=== PATIENT | female | born 1930 | race Caucasian/White ===

== ENCOUNTER 2016-12-18 01:46 | Emergency (ER) | payer OTHER, BC ==
--- NOTE | 2016-12-18 06:22 | ED ORDER SUMMARY ---
..... Patient: FRANCESCO MACE I OrderSheet [facility] VisitID: [id number] [place] [address] 86y, F Registration Date/Time: 12/18/2016 ORDER SHEET Weight: 60.7 kg (stated) Allergies: No Known Drug Allergy GENERAL ORDERS: MEDICATION ORDERS: Epinephrine Subcut 0.3 mg (NOW) (02:12/18/2016 Francisca RICHARDS) (2:58 SSambou R.N.) IV FLUIDS: Solu-MEDROL IV 125 mg (NOW) (02:12/18/2016 Francisca RICHARDS) (2:50 SSambou R.N.) Benadryl IV 25 mg (NOW) (02:12/18/2016 Francisca RICHARDS) (2:50 SSambou R.N.) Famotidine IV 40 mg/50mL (NOW) (02:24 12/18/2016 Francisca RICHARDS) (2:51 SSambou R.N.) Solu-MEDROL IV 30 mg (NOW) (06:19 12/18/2016 Francisca RICHARDS) (6:37 SSambou R.N.) ORDER SHEET NOTES: [Electronically signed by Sheriff Connor Draper (06:44 12/18/2016)] [Electronically signed by Navdeep Pavon MD (00:19 12/22/2016)] [Electronically locked/signed by Sheriff Connor Draper (06:44 12/18/2016)]
--- NOTE | 2016-12-18 06:22 | ED ORDER SUMMARY ---
..... Patient: FRANCESCO MACE I OrderSheet [facility] VisitID: [id number] [place] [address] 86y, F Registration Date/Time: 12/18/2016 ORDER SHEET Weight: 60.7 kg (stated) Allergies: No Known Drug Allergy GENERAL ORDERS: MEDICATION ORDERS: Epinephrine Subcut 0.3 mg (NOW) (02:12/18/2016 Francisca RICHARDS) (2:58 SSambou R.N.) IV FLUIDS: Solu-MEDROL IV 125 mg (NOW) (02:12/18/2016 Francisca RICHARDS) (2:50 SSambou R.N.) Benadryl IV 25 mg (NOW) (02:12/18/2016 Francisca RICHARDS) (2:50 SSambou R.N.) Famotidine IV 40 mg/50mL (NOW) (02:24 12/18/2016 Francisca RICHARDS) (2:51 SSambou R.N.) Solu-MEDROL IV 30 mg (NOW) (06:19 12/18/2016 Francisca RICHARDS) (6:37 SSambou R.N.) ORDER SHEET NOTES: [Electronically signed by Sheriff Connor Draper (06:44 12/18/2016)] [Electronically signed by Navdeep Pavon MD (00:19 12/22/2016)] [Electronically locked/signed by Sheriff Connor Draper (06:44 12/18/2016)]
--- NOTE | 2016-12-18 06:22 | ED CLINICAL REPORT ---
Clinical Report - Physicians/Mid Levels [facility] [address] [place] [address] 12/18/2016 1:47 Patient: FRANCESCO MACE I Time Seen: 02:Dec 18 2016. Arrived- By private vehicle. Historian- patient. HISTORY OF PRESENT ILLNESS Chief Complaint: ALLERGIC REACTION, SKIN RASH and ITCHING. FACIAL SWELLING. This started today and is still present. The patient has had a moderate, itchy skin rash with generalized distribution. She has had swelling involving the tongue. No cause has been identified. The patient was not assessed by EMS prior to arrival. Similar symptoms previously: Recent medical care: Not recently seen/assessed. REVIEW OF SYSTEMS No eye problems, sore throat, cough, sputum production or fever. No chills, joint pain, enlarged lymph nodes, weakness or chest pain. No palpitations, abdominal pain, vomiting, black stools or urinary frequency. No diarrhea or bloody stools. All systems otherwise negative, except as recorded above. PAST HISTORY Abdominal Pain. UTI - Urinary Tract Infection. Hernia. Angioedema. Heart Disease. Hypertension. Tremor. LNMP - Last Normal Menstrual Period. Cancer. IBS. Anxiety Reaction. Allergic Reaction. Acute Pain. Medications: Melatonin ER Oral (Tablet Extended Release 3 mg) 1 tablet. Chlorthalidone Oral (Tablet 25 mg) 1 tablet, daily. FLUoxetine HCl Oral (Capsule 20 mg) 1 capsule, daily. Metoprolol Succinate ER Oral (Tablet Extended Release 24 Hour 50 mg) 1-2 tablets, daily. Spironolactone Oral (Tablet 25 mg) 1/2 tablet, daily. Allergies: No Known Drug Allergy. SOCIAL HISTORY Never smoker. No alcohol use or drug use. ADDITIONAL NOTES The nursing notes have been reviewed. PHYSICAL EXAM Vital Signs: 12/18/2016 02:02 BP: 136/66. HR: 65. RR: 18. O2 saturation: 100%. Temp: 97.7 F. Pain level now: 0/10. Appearance: Alert. Anxious. Patient in mild distress. Head and Neck: Normal external inspection. Head: Moderate facial angioedema involving the tongue. Eyes: Pupils equal, round and reactive to light. ENT: Ears normal. Nose normal. Pharynx normal. Voice normal. Neck: Neck supple. CVS: Normal heart rate and rhythm. Heart sounds normal. Respiratory: No respiratory distress. Breath sounds normal. No stridor or wheezes. Abdomen: Nontender. Skin: Skin warm and dry. Extremities: Normal external inspection. Extremities nontender. Skin: Urticaria. Skin rash. The rash is urticarial. The rash is generalized. Neuro: Oriented X 3. No motor deficit. No sensory deficit. PROGRESS AND PROCEDURES Course of Care: 06:17 12/18/16. Much better. Pt with only minimal swelling of the tongue at this time. Pt has complete resolution of rash and itching. Pt wants to go home. She will return immediately for any worsening. She also has an Epi pen. Heplock Solumedrol 125 mg IV Famotadine 40 mg IV Benadryl 25mg IV Patient is stable. Symptoms much better. Patient/family counseled. Disposition: Discharged. Condition: stable and improved. CLINICAL IMPRESSION Allergic reaction with skin rash, hives and angioedema of unknown cause. Angioedema secondary to unknown cause with facial swelling. INSTRUCTIONS Warnings: Further evaluation is necessary. GENERAL WARNINGS: Return or contact your physician immediately if your condition worsens or changes unexpectedly, if not improving as expected, or if other problems arise. Prescription Medications: Prednisone 20 mg: take 3 orally every day for 5 days. Dispense fifteen (15). No refills. Famotidine 40 mg: take 1 orally at bedtime. Dispense five (5). No refills. OTC Medications: Benadryl Allergy 25 mg (available over the counter): take 1 orally every 6 hours as needed for itching or allergies. Dispense twenty (20). No refill. Substitution is permissible. Follow-up: Return to the emergency department if worse. Follow up with your doctor in two days. Call for an appointment. Understanding of the discharge instructions verbalized by patient. (Electronically signed by Navdeep Pavon MD 12/22/2016 0:19)
--- NOTE | 2016-12-18 06:22 | ED NURSING NOTES ---
Clinical Report - Nurses [facility] [address] [place] [address] 12/18/2016 1:47 Patient: FRANCESCO MACE I TRIAGE Triage time 02:01. Acuity: LEVEL 3. Chief Complaint: (Tongue swelling). --02:06 Sheriff Draper R.N. 02:02 12/18/16. BP: 136/66. HR: 65. RR: 18. O2 saturation: 100%. Temp: 97.7 F. Pain level now: 0/10. --02:06 Sheriff Draper R.N. 02:02 12/18/16. BP: 136/66. HR: 65. RR: 18. O2 saturation: 100%. Temp: 97.7 F. Pain level now: 0/10. --02:06 Sheriff Draper R.N. Weight: 60.7 kg stated. Height/Length: 62 inches Per Patient. BMI: 24.5. --02:06 Sheriff Draper R.N. Medications Chlorthalidone Oral (Tablet 25 mg) 1 tablet, daily. FLUoxetine HCl Oral (Capsule 20 mg) 1 capsule, daily. Metoprolol Succinate ER Oral (Tablet Extended Release 24 Hour 50 mg) 1-2 tablets, daily. Spironolactone Oral (Tablet 25 mg) 1/2 tablet, daily. --02:04 Sheriff Draper R.N. Melatonin ER Oral (Tablet Extended Release 3 mg) 1 tablet. --02:09 Sheriff Draper R.N. Allergies No Known Drug Allergy. --02:04 Sheriff Draper R.N. History Arrived by private vehicle. Historian: patient. Unaccompanied. Onset. (4 hours ago). SOCIAL HX: Never smoker. No alcohol use or drug use. ( Skin rashes.). FALL RISK ASSESSMENT: Fall risk assessment completed. No fall risk identified. NUTRITIONAL RISK ASSESSMENT: The nutritional risk assessment revealed no deficiencies. FUNCTIONAL ASSESSMENT: Functional assessment: no impairments noted. LEARNING NEEDS ASSESSMENT: The learning needs assessment revealed no barriers. --02:06 Sheriff Draper R.N. PROBLEMS: Abdominal Pain. UTI - Urinary Tract Infection. Hernia. Angioedema. Heart Disease. Hypertension. Tremor. LNMP - Last Normal Menstrual Period. Cancer. IBS. Anxiety Reaction. Allergic Reaction. Acute Pain. Tetanus Status. --02:04 Sheriff Draper R.N. Interventions ID band on patient. To room. --02:06 Sheriff Draper R.N. PHYSICAL ASSESSMENT Ambulatory to room. Patient gowned. GENERAL / NEURO / PSYCH: Alert. Oriented X 4. HEENT: No facial asymmetry noted. RESPIRATORY: Respirations not labored. CVS: Capillary refill less than 2 seconds. Pulses within normal limits. SKIN: Skin is warm and dry. Generalized skin rash. --02:07 Sheriff Draper R.N. NURSING PROGRESS NOTES Patient gowned. Head of bed elevated. Two patient identifiers checked. Call light placed in reach. Side rails up x 2. Bed placed in lowest position. Brakes of bed on. Patient ready for evaluation- chart flagged. --02:07 Sheriff Draper R.N. 02:49 12/18/2016 Site #1 started via IV in the right antecubital space with an 22g angiocath, with aseptic technique and good blood return; one attempt. Blood drawn: rainbow set. Labeled in the presence of the patient and sent to the lab. Saline lock flushed with 10 mL saline. --02:49 Sheriff Draper R.N. 02:50 12/18/2016 SOLU-MEDROL (MethylPREDNISolone Sodium Succ) IVP 125 mg given over 1 minute(s) via site #1. Allergies verified and confirmed 5 rights. IV patency established site checked: no pain, redness, or swelling flushed thoroughly pre- and post-medication administration. IVP given by RN. --02:50 Sheriff Draper R.N. 02:50 12/18/2016 Benadryl (DiphenhydrAMINE HCl) IVP 25 mg given over 1 minute(s) via site #1. Allergies verified, confirmed 5 rights and sedative warning given to the patient. IV patency established site checked: no pain, redness, or swelling flushed thoroughly pre- and post-medication administration. IVP given by RN. --02:50 Sheriff Draper R.N. 02:50 12/18/2016 Famotidine IVP 40 mg given over 1 hour(s) via site #1. Allergies verified and confirmed 5 rights. IV patency established site checked: no pain, redness, or swelling flushed thoroughly pre- and post-medication administration. IVP given by RN. --02:51 Sheriff Draper R.N. 02:58 12/18/2016 Epinephrine (EPINEPHrine HCl) Subcutaneous 0.3 mg given. Given in the left upper arm. Allergies verified and confirmed 5 rights. --02:58 Sheriff Draper R.N. 06:05 12/18/16. BP: 113/51. HR: 90. RR: 16. O2 saturation: 98%. Temp: 98 F. Pain level now: 0/10. --06:06 Sheriff Draper R.N. Reassessment after medication administered. Overall patient status is improved- she states feels better. ( Swelling getting down. Patient verbalised relieve, speech is clear.). --06:07 Sheriff Draper R.N. 06:37 12/18/2016 SOLU-MEDROL (MethylPREDNISolone Sodium Succ) IVP 30 mg given over 1 minute(s) via site #1. Allergies verified and confirmed 5 rights. IV patency established site checked: no pain, redness, or swelling flushed thoroughly pre- and post-medication administration. IVP given by RN. --06:37 Sheriff Draper R.N. 06:41 12/18/2016 Site #1 removed. Catheter intact. Bandage applied. --06:41 Sheriff Draper R.N. DISPOSITION / DISCHARGE No learning barriers present. Discharge instructions provided and reviewed with the patient. Reviewed medication(s) side effects, precautions, dosing and course information. Prescription(s) given to the patient. Patient verbalized understanding. Written instructions provided in [place] [facility]. The patient was discharged home and unaccompanied at time of discharge. She left the Emergency Department ambulatory and via private vehicle. Patient driving. --06:40 Sheriff Draper R.N. 06:38 12/18/16. BP: 99/49. HR: 86. RR: 16. O2 saturation: 98%. Temp: 98.1 F. Pain level now: 010. --06:40 Sheriff Draper R.N. Locked/Released at 12/18/2016 6:44 by Sheriff Draper R.N.
--- NOTE | 2016-12-22 00:20 | ED MED RECONCILIATION SUMMARY ---
Patient: FRANCESCO MACE I Medication Reconciliation Report [facility] VisitID: [id number] [place] [address] 86y, F Registration Date/Time: 12/18/2016 Weight: 60.7 kg Height/Length: 62 in. BMI: 24.5 ALLERGIES: No Known Drug Allergy The patient's Home Medications are listed below: THE FOLLOWING MEDICATIONS NEED TO BE RECONCILED: Chlorthalidone Oral (25 mg) 1 tablet, daily FLUoxetine HCl Oral (20 mg) 1 capsule, daily Melatonin ER Oral (3 mg) 1 tablet Metoprolol Succinate ER Oral (50 mg) 1-2 tablets, daily Spironolactone Oral (25 mg) 1/2 tablet, daily The source(s) of the original Home Medication information: Not obtained. The following Medications were given to the patient in the Emergency Department: SOLU-MEDROL [IVP] IVP 125 mg, administered: 12/18/2016 2:50:00 AM Benadryl [IVP] IVP 25 mg, administered: 12/18/2016 2:50:00 AM Famotidine [IVP] IVP 40 mg, administered: 12/18/2016 2:50:00 AM Epinephrine [Subcutanreous] Subcutaneous 0.3 mg, administered: 12/18/2016 2:58:00 AM SOLU-MEDROL [IVP] IVP 30 mg, administered: 12/18/2016 6:37:00 AM The following Medications were prescribed to the patient: Benadryl Allergy 25 mg (available over the counter): take 1 orally every 6 hours as needed for itching or allergies. Dispense twenty (20). No refill. Substitution is permissible. -- Navdeep Pavon MD Prednisone 20 mg: take 3 orally every day for 5 days. Dispense fifteen (15). No refills. -- Navdeep Pavon MD Famotidine 40 mg: take 1 orally at bedtime. Dispense five (5). No refills. -- Navdeep Pavon MD
--- NOTE | 2016-12-22 00:20 | ED MAR SUMMARY ---
..... Medication Administration Record [facility] [address] [place] [place] [address] Patient: FRANCESCO MACE I Visit ID: [id number] 86y, F Weight: 60.7 kg Height/Length: 62 in BMI: 24.5 ALLERGIES: No Known Drug Allergy Given 02:50 12/18/2016 Sheriff Draper R.N. Medication Administered: SOLU-MEDROL [IVP] (METHYLPREDNISOLONE SODIUM SUCC), Dose: 125 mg IVP over 1 minute(s), Site: #1 right AC. Medication Ordered: Solu-MEDROL IV 125 mg (NOW). Given 02:50 12/18/2016 Sheriff Draper R.N. Medication Administered: BENADRYL [IVP] (DIPHENHYDRAMINE HCL), Dose: 25 mg IVP over 1 minute(s), Site: #1 right AC. Medication Ordered: Benadryl IV 25 mg (NOW). Given 02:50 12/18/2016 Sheriff Draper R.N. Medication Administered: FAMOTIDINE [IVP], Dose: 40 mg IVP over 1 hour(s), Site: #1 right AC. Medication Ordered: Famotidine IV 40 mg/50mL (NOW). Given 02:58 12/18/2016 Sheriff Draper R.N. Medication Administered: EPINEPHRINE [SUBCUTANREOUS] (EPINEPHRINE HCL), Dose: 0.3 mg Subcutaneous. Medication Ordered: Epinephrine Subcut 0.3 mg (NOW). Given 06:37 12/18/2016 Sheriff Draper R.N. Medication Administered: SOLU-MEDROL [IVP] (METHYLPREDNISOLONE SODIUM SUCC), Dose: 30 mg IVP over 1 minute(s), Site: #1 right AC. Medication Ordered: Solu-MEDROL IV 30 mg (NOW).
--- NOTE | 2016-12-22 00:20 | ED MED RECONCILIATION SUMMARY ---
Patient: FRANCESCO MACE I Medication Reconciliation Report [facility] VisitID: [id number] [place] [address] 86y, F Registration Date/Time: 12/18/2016 Weight: 60.7 kg Height/Length: 62 in. BMI: 24.5 ALLERGIES: No Known Drug Allergy The patient's Home Medications are listed below: THE FOLLOWING MEDICATIONS NEED TO BE RECONCILED: Chlorthalidone Oral (25 mg) 1 tablet, daily FLUoxetine HCl Oral (20 mg) 1 capsule, daily Melatonin ER Oral (3 mg) 1 tablet Metoprolol Succinate ER Oral (50 mg) 1-2 tablets, daily Spironolactone Oral (25 mg) 1/2 tablet, daily The source(s) of the original Home Medication information: Not obtained. The following Medications were given to the patient in the Emergency Department: SOLU-MEDROL [IVP] IVP 125 mg, administered: 12/18/2016 2:50:00 AM Benadryl [IVP] IVP 25 mg, administered: 12/18/2016 2:50:00 AM Famotidine [IVP] IVP 40 mg, administered: 12/18/2016 2:50:00 AM Epinephrine [Subcutanreous] Subcutaneous 0.3 mg, administered: 12/18/2016 2:58:00 AM SOLU-MEDROL [IVP] IVP 30 mg, administered: 12/18/2016 6:37:00 AM The following Medications were prescribed to the patient: Benadryl Allergy 25 mg (available over the counter): take 1 orally every 6 hours as needed for itching or allergies. Dispense twenty (20). No refill. Substitution is permissible. -- Navdeep Pavon MD Prednisone 20 mg: take 3 orally every day for 5 days. Dispense fifteen (15). No refills. -- Navdeep Pavon MD Famotidine 40 mg: take 1 orally at bedtime. Dispense five (5). No refills. -- Navdeep Pavon MD
--- NOTE | 2016-12-22 00:20 | ED DISCHARGE INSTRUCTIONS ---
Patient: FRANCESCO MACE I General Instructions [facility] VisitID: [id number] [place] [address] 86y, F Registration Date/Time: 12/18/2016 Allergic reaction with skin rash, hives and angioedema of unknown cause. Angioedema secondary to unknown cause with facial swelling. INSTRUCTIONS Warnings: Further evaluation is necessary. GENERAL WARNINGS: Return or contact your physician immediately if your condition worsens or changes unexpectedly, if not improving as expected, or if other problems arise. Prescription Medications: Prednisone 20 mg: take 3 orally every day for 5 days. Dispense fifteen (15). No refills. Famotidine 40 mg: take 1 orally at bedtime. Dispense five (5). No refills. OTC Medications: Benadryl Allergy 25 mg (available over the counter): take 1 orally every 6 hours as needed for itching or allergies. Dispense twenty (20). No refill. Substitution is permissible. Follow-up: Return to the emergency department if worse. Follow up with your doctor in two days. Call for an appointment. Understanding of the discharge instructions verbalized by patient. ADDITIONAL INFORMATION Allergic Reaction,Generalized [Other] You are having an allergic reaction. This may cause an itchy rash, dizziness, fainting, trouble breathing or swallowing, and swelling of the face or other parts of the body. This can be caused by exposure to something in your surroundings that you have become sensitive to. This could be due to medicine or food. This could also be due to something you put on your skin or in your hair or something in the air. Often it is not possible to find out exactly what has caused your reaction. The goal of today's treatment is to relieve symptoms. The rash will usually fade over several days, but can sometimes last up to two weeks. Home Care: 1) If you know what you are allergic to, avoid it because future reactions could be worse than this one. 2) Avoid tight clothing and anything that heats up your skin (hot showers/baths, direct sunlight) since heat will make itching worse. 3) An ice pack will relieve local areas of intense itching and redness. Lanacaine cream or Solarcaine spray (or other product containing "benzocaine", available without a prescription) will reduce the itching. 4) Oral Benadryl (diphenhydramine) is an antihistamine available at drug and grocery stores. Unless a prescription antihistamine was given, Benadryl may be used to reduce itching if large areas of the skin are involved. Use lower doses during the daytime and higher doses at bedtime since the drug may make you sleepy. [NOTE: Do not use Benadryl if you have glaucoma or if you are a man with trouble urinating due to an enlarged prostate.] Claritin (loratidine) is an antihistamine that causes less drowsiness and is a good alternative for daytime use. Follow Up Follow Up with your doctor or this facility in two days if your symptoms do not continue to improve. If you had a severe reaction today, or if you have had several mild-moderate allergic reactions in the past, ask your doctor about allergy testing to find out what you are allergic to. If your reaction included dizziness, fainting or trouble breathing or swallowing, ask your doctor about carrying an Allergy Kit (injectable epinephrine) for home use. Get Prompt Medical Attention if any of the following occur: -- Trouble breathing or swallowing -- New or worse swelling in the face, eyelids, lips, mouth, tongue or throat -- Dizziness, weakness or fainting Angioedema Angioedema ([id number]) is a sudden appearance of swollen patches (edema) on the skin or mucous membranes. The swelling is painless and does not itch. It most often involves the face, lips, mouth, tongue, back of throat or vocal cords. It may also occur in other places such as the arms or legs. A rash may also appear during the first 4 days of this illness. The most common cause for this condition is a side-effect to a class of medicine calledACE inhibitor.This type of drug is used to treat high blood pressure. It includes captopril (Capoten), enalapril (Vasotec) and lisinopril (Prinivil, Zestril). Tell your doctor if you are taking any of these medicines. Other causes of angioedema include allergic reaction to something eaten, touched or inhaled. Angioedema may also be hereditary. In some cases, no cause can be found. Angioedema can lead to the swelling of the air passage in the mouth or throat. Severe swelling can block your breathing and cause . Your doctor believes that you are not at risk for this; however, be alert for early signs of increased swelling in the mouth or throat, or difficulty with swallowing or breathing. Angioedema may recur. It is therefore important to watch for the earliest signs of this condition (below). Return to the hospital promptly if swelling involves the face, mouth or throat areas. Home Care: Rest quietly today. No heavy exertion or excess physical activity. If you were told that your angioedema was from a medicine that you are taking, you must stop taking this medicine. Contact your doctor for a different one. In the future, advise medical staff that you are allergic to this medicine. If medicine was prescribed to treat angioedema (for example, steroids or antihistamines), take it as directed. Oral Benadryl (diphenhydramine) is an antihistamine available at drug and grocery stores. Unless another antihistamine was prescribed, Benadryl may be used to reduce swelling or itching. Use lower doses during the daytime and higher doses at bedtime since the drug may make you sleepy. [NOTE: Do not use Benadryl if you have glaucoma or if you are a man with trouble urinating due to an enlarged prostate.] Claritin (loratidine) is an antihistamine that causes less drowsiness and is a good alternative for daytime use. Follow Up with your doctor or as advised by our staff. Get Prompt Medical Attention if any of the following occur: Increase in swelling of lip, mouth, tongue or throat Trouble swallowing Trouble breathing Severe abdominal pains Allergic Reaction,Generalized [Other] You are having an allergic reaction. This may cause an itchy rash, dizziness, fainting, trouble breathing or swallowing, and swelling of the face or other parts of the body. This can be caused by exposure to something in your surroundings that you have become sensitive to. This could be due to medicine or food. This could also be due to something you put on your skin or in your hair or something in the air. Often it is not possible to find out exactly what has caused your reaction. The goal of today's treatment is to relieve symptoms. The rash will usually fade over several days, but can sometimes last up to two weeks. Home Care: 1) If you know what you are allergic to, avoid it because future reactions could be worse than this one. 2) Avoid tight clothing and anything that heats up your skin (hot showers/baths, direct sunlight) since heat will make itching worse. 3) An ice pack will relieve local areas of intense itching and redness. Lanacaine cream or Solarcaine spray (or other product containing "benzocaine", available without a prescription) will reduce the itching. 4) Oral Benadryl (diphenhydramine) is an antihistamine available at drug and grocery stores. Unless a prescription antihistamine was given, Benadryl may be used to reduce itching if large areas of the skin are involved. Use lower doses during the daytime and higher doses at bedtime since the drug may make you sleepy. [NOTE: Do not use Benadryl if you have glaucoma or if you are a man with trouble urinating due to an enlarged prostate.] Claritin (loratidine) is an antihistamine that causes less drowsiness and is a good alternative for daytime use. Follow Up Follow Up with your doctor or this facility in two days if your symptoms do not continue to improve. If you had a severe reaction today, or if you have had several mild-moderate allergic reactions in the past, ask your doctor about allergy testing to find out what you are allergic to. If your reaction included dizziness, fainting or trouble breathing or swallowing, ask your doctor about carrying an Allergy Kit (injectable epinephrine) for home use. Get Prompt Medical Attention if any of the following occur: -- Trouble breathing or swallowing -- New or worse swelling in the face, eyelids, lips, mouth, tongue or throat -- Dizziness, weakness or fainting Famotidine Oral tablet What is this medicine? FAMOTIDINE (fa OSVALDO ti jasson) is a type of antihistamine that blocks the release of stomach acid. It is used to treat stomach or intestinal ulcers. It can also relieve heartburn from acid reflux. How should I use this medicine? Take this medicine by mouth with a glass of water. Follow the directions on the prescription label. If you only take this medicine once a day, take it at bedtime. Take your doses at regular intervals. Do not take your medicine more often than directed. Talk to your schedule planning manager regarding the use of this medicine in children. Special care may be needed. What side effects may I notice from receiving this medicine? Side effects that you should report to your doctor or health critical care unit nurse as soon as possible: agitation, nervousness confusion hallucinations skin rash, itching Side effects that usually do not require medical attention (report to your doctor or health critical care unit nurse if they continue or are bothersome): constipation diarrhea dizziness headache What may interact with this medicine? delavirdine itraconazole ketoconazole What if I miss a dose? If you miss a dose, take it as soon as you can. If it is almost time for your next dose, take only that dose. Do not take double or extra doses. Where should I keep my medicine? Keep out of the reach of children. Store at room temperature between 15 and 30 degrees C (59 and 86 degrees F). Do not freeze. Throw away any unused medicine after the expiration date. What should I tell my health care provider before I take this medicine? They need to know if you have any of these conditions: kidney or liver disease trouble swallowing an unusual or allergic reaction to famotidine, other medicines, foods, dyes, or preservatives or trying to get breast-feeding What should I watch for while using this medicine? Tell your doctor or health critical care unit nurse if your condition does not start to get better or if it gets worse. Finish the full course of tablets prescribed, even if you feel better. Do not take with aspirin, ibuprofen or other antiinflammatory medicines. These can make your condition worse. Do not smoke cigarettes or drink alcohol. These cause irritation in your stomach and can increase the time it will take for ulcers to heal. If you get black, tarry stools or vomit up what looks like coffee grounds, call your doctor or health critical care unit nurse at once. You may have a bleeding ulcer. Diphenhydramine Tannate Chewable tablet What is this medicine? DIPHENHYDRAMINE (dye jennifer lau) is an antihistamine. It is used to treat the symptoms of an allergic reaction. How should I use this medicine? Take this medicine by mouth. Chew it completely before swallowing. Follow the directions on the prescription label. Take your doses at regular intervals. Do not take your medicine more often than directed. Talk to your schedule planning manager regarding the use of this medicine in children. While this drug may be prescribed for children as young as 6 years old for selected conditions, precautions do apply. Patients over 65 years old may have a stronger reaction and need a smaller dose. What side effects may I notice from receiving this medicine? Side effects that you should report to your doctor or health critical care unit nurse as soon as possible: allergic reactions like skin rash, itching or hives, swelling of the face, lips, or tongue changes in vision confused, agitated, nervous irregular or fast heartbeat tremor trouble passing urine unusual bleeding or bruising unusually weak or tired Side effects that usually do not require medical attention (report to your doctor or health critical care unit nurse if they continue or are bothersome): constipation, diarrhea drowsy headache loss of appetite stomach upset, vomiting thick mucous What may interact with this medicine? Do not take this medicine with any of the following medications: MAOIs like Carbex, Eldepryl, Marplan, Nardil, and Parnate This medicine may also interact with the following medications: alcohol barbiturates, like phenobarbital medicines for bladder spasm like oxybutynin, tolterodine medicines for blood pressure medicines for depression, anxiety, or psychotic disturbances medicines for movement abnormalities or Parkinson's disease medicines for sleep other medicines for cold, cough or allergy some medicines for the stomach like chlordiazepoxide, dicyclomine What if I miss a dose? If you miss a dose, take it as soon as you can. If it is almost time for your next dose, take only that dose. Do not take double or extra doses. Where should I keep my medicine? Keep out of the reach of children. Store at room temperature between 15 and 30 degrees C (59 and 86 degrees F). Keep container closed tightly. Throw away any unused medicine after the expiration date. What should I tell my health care provider before I take this medicine? They need to know if you have any of these conditions: glaucoma high blood pressure heart disease liver disease lung or breathing disease, like asthma pain or difficulty passing urine phenylketonuria prostate trouble ulcers or other stomach problems an unusual or allergic reaction to diphenhydramine, sulfites, other medicines foods, dyes, or preservatives or trying to get breast-feeding What should I watch for while using this medicine? Visit your doctor or health critical care unit nurse for regular check ups. Tell your doctor or healthcare professional if your symptoms do not start to get better or if they get worse. Your mouth may get dry. Chewing sugarless gum or sucking hard candy, and drinking plenty of water may help. Contact your doctor if the problem does not go away or is severe. This medicine may cause dry eyes and blurred vision. If you wear contact lenses you may feel some discomfort. Lubricating drops may help. See your eye doctor if the problem does not go away or is severe. You may get drowsy or dizzy. Do not drive, use machinery, or do anything that needs mental alertness until you know how this medicine affects you. Do not stand or sit up quickly, especially if you are an older patient. This reduces the risk of dizzy or fainting spells. Alcohol may interfere with the effect of this medicine. Avoid alcoholic drinks. You have been given the following additional information: Allergic Reaction, Other (General) Angioedema Allergic Reaction, Other (General) Famotidine Oral tablet Diphenhydramine Tannate Chewable tablet (Electronically signed by Navdeep Pavon MD 12/22/2016 0:19)
--- NOTE | 2016-12-22 00:20 | ED MAR SUMMARY ---
..... Medication Administration Record [facility] [address] [place] [address] Patient: FRANCESCO MACE I Visit ID: [id number] 86y, F Weight: 60.7 kg Height/Length: 62 in BMI: 24.5 ALLERGIES: No Known Drug Allergy Given 02:50 12/18/2016 Sheriff Draper R.N. Medication Administered: SOLU-MEDROL [IVP] (METHYLPREDNISOLONE SODIUM SUCC), Dose: 125 mg IVP over 1 minute(s), Site: #1 right AC. Medication Ordered: Solu-MEDROL IV 125 mg (NOW). Given 02:50 12/18/2016 Sheriff Draper R.N. Medication Administered: BENADRYL [IVP] (DIPHENHYDRAMINE HCL), Dose: 25 mg IVP over 1 minute(s), Site: #1 right AC. Medication Ordered: Benadryl IV 25 mg (NOW). Given 02:50 12/18/2016 Sheriff Draper R.N. Medication Administered: FAMOTIDINE [IVP], Dose: 40 mg IVP over 1 hour(s), Site: #1 right AC. Medication Ordered: Famotidine IV 40 mg/50mL (NOW). Given 02:58 12/18/2016 Sheriff Draper R.N. Medication Administered: EPINEPHRINE [SUBCUTANREOUS] (EPINEPHRINE HCL), Dose: 0.3 mg Subcutaneous. Medication Ordered: Epinephrine Subcut 0.3 mg (NOW). Given 06:37 12/18/2016 Sheriff Draper R.N. Medication Administered: SOLU-MEDROL [IVP] (METHYLPREDNISOLONE SODIUM SUCC), Dose: 30 mg IVP over 1 minute(s), Site: #1 right AC. Medication Ordered: Solu-MEDROL IV 30 mg (NOW).
== END 2016-12-18 06:42 | disposition home or self-care (01) ==
LOC: ED SRH 01:46
DX: T78.40XA Allergy, unspecified, initial encounter (principal); R22.0 Localized swelling, mass and lump, head; R21 Rash and other nonspecific skin eruption; L50.9 Urticaria, unspecified; I10 Essential (primary) hypertension; Z79.899 Other long term (current) drug therapy